=== PATIENT | female | born 1985 | race Asian ===

== ENCOUNTER 2016-09-13 00:10 | Inpatient (IN) | payer SELFPAY ==
[~2016-09-13] VITALS: Ht 161 cm; Wt 54.4 kg
[2016-09-13] MEDS ORDERED: OXYTOCIN 20 UNITS/LR PREMIX 1,000 ML IV SCH (00:52)
[2016-09-13] MEDS ORDERED: LACTATED RINGERS 1,000 ML IV SCH (00:52)
[2016-09-13] MEDS ORDERED: OXYTOCIN 10 UNITS/ML VIAL IM SCH (00:55)
[2016-09-13] MEDS ORDERED: METHYLERGONOVINE 0.2 MG/ML AMP IM SCH (00:55)
[2016-09-13] MEDS ORDERED: CARBOPROST 250 MCG/ML AMP IM PRN (00:55)
[2016-09-13] MEDS ORDERED: NALBUPHINE 10 MG/ML AMP IVP PRN (00:55)
[2016-09-13] MEDS ORDERED: PROMETHAZINE 25 MG/ML VIAL IVP PRN (00:55)
[2016-09-13] MEDS ORDERED: IBUPROFEN 800 MG TAB PO PRN ×2 (00:55→14:40)
[2016-09-13] MEDS: MISOPROSTOL 25 MCG TAB VG SCH ×2 (02:33→06:42)
[2016-09-13] MEDS ORDERED: MISOPROSTOL 25 MCG TAB ONE ×2 (02:34→06:32)
[2016-09-13 03:13] VITALS: BP 115/69
--- NOTE | 2016-09-13 09:00 | NUR ---
PATIENT HAS BEEN SCREENED AND CATEGORIZED LOW NUTRITION RISK. PATIENT WILL BE SEEN WITHIN 7 DAYS OF ADMISSION. 09/19/[address]
[2016-09-13] MEDS ORDERED: NALBUPHINE HYDROCHLORIDE 10 MG/ML VIAL ONE (10:35)
[2016-09-13] MEDS ORDERED: PROMETHAZINE 25 MG/ML VIAL ONE (10:36)
[2016-09-13] MEDS ORDERED: ROPIVACAINE 0.2%/NS PREMIX 250 ML EPI ONE (11:04)
[2016-09-13] MEDS ORDERED: OXYTOCIN 20 UNITS/LR PREMIX 1,000 ML IV ONE (11:43)
[2016-09-13] MEDS ORDERED: OXYTOCIN 10 UNITS/ML VIAL ONE (13:35)
[2016-09-13] MEDS ORDERED: WITCH HAZEL 40 PAD PACKAGE TP PRN (14:40)
[2016-09-13] MEDS ORDERED: oxyCODONE/APAP 5/325 MG 1 TAB TAB PO PRN (14:40)
[2016-09-13] MEDS ORDERED: BENZOCAINE/MENTHOL 20%-0.5% 60 GM CAN TP PRN (14:40)
[2016-09-13] MEDS ORDERED: TEMAZEPAM 15 MG CAP PO PRN (14:40)
[2016-09-13] MEDS ORDERED: MEASLES, MUMPS, AND RUBELLA 1 VIAL SQVAC PRN (14:40)
[2016-09-13] MEDS ORDERED: HYDROcodone/APAP 5/325 MG 1 TAB TAB PO PRN (14:40)
[2016-09-13] MEDS ORDERED: METHYLERGONOVINE 0.2 MG/ML AMP IM PRN (14:40)
[2016-09-13] MEDS ORDERED: DOCUSATE SOD/SENNA 50/8.6 MG 1 TAB PO SCH (21:00)
== END 2016-09-15 14:45 | disposition home or self-care (01) | DRG 775 ==
LOC: MLD 00:10 → MFCC 19:57
PROVIDERS: ADMIT Obstetrics & Gynecology; ATTEND Obstetrics & Gynecology
PROC: 10D07Z6 Extraction of Products of Conception, Vacuum, Via Natural or Artificial Opening (ICD-10-PCS; principal; 2016-09-13)
PROC: 0W8NXZZ Division of Female Perineum, External Approach (ICD-10-PCS; 2016-09-13)
PROC: 3E033VJ Introduction of Other Hormone into Peripheral Vein, Percutaneous Approach (ICD-10-PCS; 2016-09-13)
PROC: 3E0P7GC Introduction of Other Therapeutic Substance into Female Reproductive, Via Natural or Artificial Opening (ICD-10-PCS; 2016-09-13)
PROC: 00HU33Z Insertion of Infusion Device into Spinal Canal, Percutaneous Approach (ICD-10-PCS; 2016-09-13)
PROC: 3E0R3CZ (ICD-10-PCS; 2016-09-13)
PROC: 3E0234Z Introduction of Serum, Toxoid and Vaccine into Muscle, Percutaneous Approach (ICD-10-PCS; 2016-09-14)
DX: O76 Abnormality in fetal heart rate and rhythm complicating labor and delivery (principal); O64.0XX0 Obstructed labor due to incomplete rotation of fetal head, not applicable or unspecified; O69.1XX0 Labor and delivery complicated by cord around neck, with compression, not applicable or unspecified; Z37.0 Single live birth; Z3A.39 39 weeks gestation of pregnancy; Z23 Encounter for immunization